=== PATIENT | female | born 1975 | race Caucasian/White ===

== ENCOUNTER → 2024-07-08 | Outpatient (CLI) | payer OTHER, SELFPAY ==
--- NOTE | 2024-07-08 14:00 | XR_ITS ---
Examination: CT abdomen with intravenous contrast. Coronal 2-D reconstructions. Sagittal 2-D reconstructions. Date and time of exam: July 08, 2024 1430 hours INDICATIONS: Onset pelvic and perineal pain beginning 3 months ago CTDI: vol (mGy): 8.25 DLP: (mGycm): 304 Technique: Axial images of the abdomen have been obtained, 3 mm slice thickness, 60 cc [id number] 2-D sagittal coronal reconstructions Low dose protocols were performed. One or more of the following dose reduction techniques were used; automated exposure control, adjustment of the mA and/or KV according to patient size, use of iterative reconstruction technique. Findings: Tiny liver cysts No gallstones Spleen not enlarged No pancreatic mass No renal or ureteral calculi, no hydronephrosis Aorta normal size Normal appendix Grade 1 spondylolisthesis L5 on S1 with advanced degenerative disc disease at this level IMPRESSION: No acute process in the abdomen
== END | disposition home or self-care (01) ==
PROVIDERS: PCP Nurse Practitioner Family; Referring Provider Nurse Practitioner Family; Visit Provider Nurse Practitioner Family
DX: R10.2 Pelvic and perineal pain (principal)
CPT/HCPCS: 74160; A4649; Q9967

== ENCOUNTER 2024-08-07 13:35 | Outpatient (AMB) | payer OTHER, SELFPAY ==
[2024-08-07 14:07] VITALS: BP 134/92; PULSE 92; RESP 18; TEMP 36.2; O2SAT 98
--- NOTE | 2024-08-07 14:07 | GYNCLNT_ITS ---
Vital Signs 08/07/24 14:07 Weight 80.995 kg Weight Measurement Method Standing Scale BP 134/92 H Blood Pressure Source Automatic Cuff Blood Pressure Location Left Upper Arm Position Sitting Respiration 18 Pulse 92 Pulse Source Monitor Temp 97.2 F Temp Source Oral Pulse Oximetry (%) 98 Oxygen Delivery Method Room Air Allergies/Home Meds Allergies & Medications Allergies No Known Allergies Allergy (Verified 08/13/24 13:29) Medication Reconciliation estradiol 0.01% (0.1 mg/gram) vaginal cream 1 g vaginal QDAY 30 days #42.5 grams 08/13/24 [Rx Confirmed 08/13/24] Intake Visit Data Collection New Patient or Established: New Patient not seen in past 3 years at [facility] (considered New) Reason for Visit:: HYSTERECTOMY CONERNS Seen by Clinical Staff ONLY (RN/MA): No Life Enrichment Director Required: No Do You Feel Safe at Home: Yes Authorities Contacted: N/A PCP or OBGYN visit in last 3 months: Yes Hx Now: Yes Are you currently on any form of Control: No Pain Present Currently: No Pain Scale Used: Durbin-Mayer/Numerical Pain scale:: 0 Smoking Status Smoking Status: Never smoker 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 History Monthly: No Age at menarche: 13 Menopausal: No Currently sexually active: Yes 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 1. Little interest or pleasure in doing things: not at all 2. Feeling down, depressed, or hopeless: not at all Total score: 0 PHQ-9 3. Trouble falling or staying asleep, or sleeping too much: Not at all 4. Feeling tired or having little energy: Not at all 5. Poor appetite or overeating: Not at all 6. Feeling bad about yourself - or that you are a failure or have let yourself or your family down: Not at all 7. Trouble concentrating on things, such as reading the newspaper or watching television: Not at all 8. Moving or speaking so slowly that other people could have noticed? - Or the opposite - being so fidgety or restless that you have been moving around a lot more than usual: not at all 9. Thoughts that you would be better off or of hurting yourself in some way: Not at all Total score: 0 If you checked off any problems, how difficult have these problems made it for you to do your work, take care of things at home, or get along with other people?: not difficult at all Source: Developed by Drs. Solis Figueredo, Sarah Peter, Mg Giron and colleagues, with an educational abraham from [employer]. Depression screen completed yes Social History Living Situation History Lives With: Family Housing: House Housing Other:: indep lives with family Tobacco History Smoking Status: Never smoker Second Hand Smoke Exposure: No Alcohol History Alcohol Intake: Never Domestic Abuse History Do You Feel Safe at Home: Yes History of Present Illness HPI Narrative Rebecca Lunsford is a 48-year-old female presenting for follow-up on pelvic pain status post hysterectomy. She has a history of multiple pelvic and abdominal surgeries, including a total abdominal hysterectomy with bilateral salpingo-oophorectomy performed on October 22, 2020, for endometriosis and chocolate cysts. The patient reports ongoing pelvic pain, which she describes as a pulling sensation in the anterior abdominal wall. This pain had initially improved after her surgery but has since recurred. She characterizes the pain as deep and cramping, similar to menstrual cramps, despite the absence of her uterus. The pain is located primarily in the midline of her lower abdomen. She also experiences pressure and sharp pain during intercourse. Rebecca notes that she started experiencing this pain again in February or January, with more consistent symptoms since March or April. She denies any changes in bowel habits, loose stools, or constipation. The patient reports feeling bloated at times. The pain is impacting her daily life, causing concern due to its similarity to her pre-surgical symptoms. The patient has undergone recent imaging studies, including a pelvic ultrasound, which did not reveal any abnormalities. She is scheduled for both abdominal and pelvic MRI scans to further investigate the source of her pain. Regarding other health concerns, Rebecca mentions having breast implants and undergoing MRI screenings for breast cancer surveillance instead of mammograms due to discomfort experienced with traditional mammography. ROS: General: Positive for pain. Gastrointestinal: Positive for bloating. Genitourinary: Positive for deep pelvic pain, pain during intercourse. Musculoskeletal: Positive for pulling sensation in anterior abdominal wall. Exam General General Appearance: alert, in no apparent distress and healthy appearing Head Head exam: atraumatic Neck Neck exam: Present normal inspection and trachea midline Chest Chest inspection: Present normal inspection and symmetric chest wall rise External exam: Present normal external exam; Absent tenderness Neuro Neurological exam: Present oriented X3 Psych Psychiatric exam: Present normal affect and normal mood Office Procedures OB Clinic LOC & Office Proc's Nursing/Assessment Patient Status: Initial/New Patient OB Clinic Nursing Assessment: Medication Reconciliation, Update PMH in EMR and Vital Signs OB Clinic Coordination of Care: Education Complex Pt/Fam, Consent,records obtained, informed consent, Lab and Imaging orders and Staff clarify orders New Patient Charge New Patient Point Assignment: [id number] New Patient Point Charge: PROJECT STRUCTURAL ENGINEER Level 3 ([id number]) Assessment & Plan Diagnosis / Problem List (1) S/P RG-BSO (total abdominal hysterectomy and bilateral salpingo- oophorectomy): Status: Acute (2) Pelvic and perineal pain: Status: Acute (3) Peritoneal adhesions (postprocedural) (postinfection): Status: Acute (4) Endometriosis of the uterus, unspecified: Status: Acute (5) Postmenopausal atrophic vaginitis: Status: Acute Plan Chronic Pelvic Pain: - Persistent pelvic pain described as pulling sensation in anterior abdominal wall and deep pain - Pain localized to midline, associated with feeling of bloating - Differential diagnosis: post-surgical adhesions, reactivation of endometriosis, or neuropathic pain - Physical examination: no palpable masses or hernias - Recent pelvic ultrasound reportedly clear Plan: - Await results of scheduled abdominal and pelvic MRI - Review MRI results at follow-up appointment next week - If MRI is clear, consider diagnostic laparoscopy for evaluation and possible lysis of adhesions - Discuss potential involvement of Dr. Hassan for management of bowel adhesions if present - If laparoscopy is unrevealing, consider nerve studies to evaluate for trapped nerve - Trial of topical estrogen cream for vaginal application - Follow up next week to review MRI results and determine next steps Menopausal Symptoms: - Status post total hysterectomy with bilateral salpingo-oophorectomy - Reports discomfort during intercourse, possibly related to vaginal atrophy Plan: - Initiate trial of topical estrogen cream for vaginal application - Educate patient on proper application of estrogen cream - Assess response to treatment at follow-up visit Breast Cancer Screening: - History of breast implants and discomfort with traditional mammography - Last mammogram performed approximately 8 years ago Plan: - Recommend annual breast ultrasound for routine screening - Consider breast MRI every 10 years for comprehensive evaluation - Educate patient on importance of regular breast cancer screening and appropriateness of ultrasound and MRI for patients with breast implants
== END 2024-08-07 14:36 | disposition home or self-care (01) ==
LOC: HODSOBC 13:35
PROVIDERS: PCP Nurse Practitioner Family; Referring Provider Nurse Practitioner Family; Supervising Provider Obstetrics & Gynecology; Visit Provider Obstetrics & Gynecology
DX: K66.0 Peritoneal adhesions (postprocedural) (postinfection) (principal); N95.2 Postmenopausal atrophic vaginitis; N80.00 Endometriosis of the uterus, unspecified; Z90.710 Acquired absence of both cervix and uterus; Z90.79 Acquired absence of other genital organ(s); Z90.722 Acquired absence of ovaries, bilateral; Z98.82 Breast implant status
CPT/HCPCS: 99203; G0463

== ENCOUNTER → 2024-08-10 | Outpatient (CLI) | payer OTHER, SELFPAY ==
--- NOTE | 2024-08-10 13:45 | XR_ITS ---
Examination: MRI abdomen with intravenous contrast. MRI abdomen without intravenous contrast. Date and time of exam: August 10, 2024 1333 hours INDICATIONS: Right-sided abdominal pain beginning 4 months ago Technique: Multiple axial, sagittal and coronal sections of the abdomen obtained. Transverse images, TR 6020, TE 107. T1 weighted transverse images, TR 582, TE 9.5. T2-weighted sagittal images, TR 4000, TE 105. T2-weighted sagittal images, TR 4000, TE 5. Coronal images, TR 4210, TE 107. Axial and coronal images are obtained post 19 cc intravenous injection, gadolinium. Findings: 13 mm anterior right liver cyst No intrahepatic biliary tract dilatation No gallstones noted The common hepatic or common bile duct stones Spleen is not enlarged cyst No hydronephrosis No ascites Aorta normal size Postcontrast images demonstrate no abnormal enhancement of the liver cyst or other abnormal enhancement in the abdomen IMPRESSION: 13 mm benign anterior right lobe liver cyst Negative for biliary tract dilatation No common duct or common bile duct stones Negative for ascites No abnormal enhancement on the postcontrast images
--- NOTE | 2024-08-10 14:45 | XR_ITS ---
Examination: MRI pelvis with intravenous contrast. MRI pelvis without intravenous contrast. Date and time of exam: August 10, 2024 1333 hours INDICATIONS: Onset of pelvic and perineal pain beginning 3 months ago Technique: Multiple axial, sagittal and coronal sections of the pelvis obtained. Transverse images, TR 6020, TE 107. T1 weighted transverse images, TR 582, TE 9.5. T2-weighted sagittal images, TR 4000, TE 105. T2-weighted sagittal images, TR 4000, TE 5. Coronal images, TR 4210, TE 107. Axial and coronal images are obtained post 19 cc intravenous injection, gadolinium. Findings: Uterus is 9 visualized No adnexal mass Urinary bladder is intact No presacral edema or mass Homogeneous signal lower vertebral bodies and sacral segments No common iliac external iliac or common femoral lymphadenopathy No abnormal enhancement in the pelvis IMPRESSION: Negative for pelvic mass
== END | disposition home or self-care (01) ==
LOC: SMRI 13:17
PROVIDERS: PCP Obstetrics & Gynecology; Referring Provider Obstetrics & Gynecology; Visit Provider Obstetrics & Gynecology
DX: K76.89 Other specified diseases of liver (principal)
CPT/HCPCS: 72197; 74183; A9579

== ENCOUNTER 2024-08-13 13:21 | Outpatient (AMB) | payer OTHER, SELFPAY ==
--- NOTE | 2024-08-13 13:28 | AMB.GYNCLNOT ---
Allergies/Home Meds Allergies & Medications Allergies No Known Allergies Allergy (Verified 08/13/24 13:29) Medication Reconciliation estradiol 0.01% (0.1 mg/gram) vaginal cream 1 g vaginal QDAY 30 days #42.5 grams 08/13/24 [Rx Confirmed 08/13/24] Intake Visit Data Collection New Patient or Established: Established Patient (seen at [facility] within 3 years) Reason for Visit:: results Consent obtained for Telemed Visit: Yes Seen by Clinical Staff ONLY (RN/MA): No Ride Operator Required: No Do You Feel Safe at Home: Yes Authorities Contacted: N/A PCP or OBGYN visit in last 3 months: Yes Hx Now: No Are you currently on any form of Control: No Pain Present Currently: No Pain Scale Used: Durbin-Mayer/Numerical Pain scale:: 0 Smoking Status Smoking Status: Never smoker 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 1. Little interest or pleasure in doing things: not at all 2. Feeling down, depressed, or hopeless: not at all Total score: 0 PHQ-9 3. Trouble falling or staying asleep, or sleeping too much: Not at all 4. Feeling tired or having little energy: Not at all 5. Poor appetite or overeating: Not at all 6. Feeling bad about yourself - or that you are a failure or have let yourself or your family down: Not at all 7. Trouble concentrating on things, such as reading the newspaper or watching television: Not at all 8. Moving or speaking so slowly that other people could have noticed? - Or the opposite - being so fidgety or restless that you have been moving around a lot more than usual: not at all 9. Thoughts that you would be better off or of hurting yourself in some way: Not at all Total score: 0 If you checked off any problems, how difficult have these problems made it for you to do your work, take care of things at home, or get along with other people?: not difficult at all Source: Developed by Drs. Solis Figueredo, Sarah Peter, Mg Giron and colleagues, with an educational abraham from [employer]. Depression screen completed yes Social History Living Situation History Lives With: Family Housing: House Housing Other:: indep lives with family Tobacco History Smoking Status: Never smoker Second Hand Smoke Exposure: No Alcohol History Alcohol Intake: Never Domestic Abuse History Do You Feel Safe at Home: Yes History of Present Illness HPI Narrative Patient presents with ongoing pain, which has been previously evaluated. She recently underwent an MRI to investigate the source of her pain. The patient reports persistent pain, though the specific location and characteristics are not detailed. She has been experiencing this pain for an unspecified duration, and it appears to be impacting her quality of life enough to consider further diagnostic procedures. The possibility of a diagnostic laparoscopy to further investigate the cause of the pain is discussed, suggesting that previous treatments or evaluations have not fully resolved the issue. The pain could potentially be due to surgical scar tissue or muscle pulling, indicating a possible history of previous surgery. The patient agrees to try pain medication as a first-line treatment before considering the diagnostic laparoscopy. Medications include pain medication. Review of Systems shows positive for musculoskeletal pain. Results Objective Imaging: Diagnostic Test Results and Labs: - MRI (08/10/2024): Completely normal. Uterus not seen, no mass, bladder normal, no edema, no inflammation. Office Procedures OB Clinic LOC & Office Proc's Nursing/Assessment Patient Status: Established Patient OB Clinic Nursing Assessment: Medication Reconciliation and Update PMH in EMR OB Clinic Coordination of Care: Education Complex Pt/Fam, Consent,records obtained, informed consent and Staff clarify orders Established Patient Charge Established Patient Point Assignment: 50 Telehealth If patient is seen using Teleconference methods, complete New/Est section, but DO NOT jayro points only jayro the correct Telemed visit type Telemed Phone/Video with patient at home & ,[place],COMMUNITY REPRESENTATIVE: Yes Assessment & Plan Diagnosis / Problem List (1) Postmenopausal atrophic vaginitis: Status: Acute (2) Endometriosis of the uterus, unspecified: Status: Acute (3) Peritoneal adhesions (postprocedural) (postinfection): Status: Acute Plan Persistent pain of unknown etiology Plan: - Prescribe pain medication (specifics to be sent to pharmacy). - Recommend continuation of exercise regimen with pain medication as needed. - Patient to trial conservative management with pain medication and exercise. - Consider diagnostic laparoscopy if pain persists despite conservative management. - Follow up as needed if pain persists or worsens.
== END 2024-08-13 13:51 | disposition home or self-care (01) ==
LOC: HODSOBC 13:21
PROVIDERS: PCP Obstetrics & Gynecology; Referring Provider Obstetrics & Gynecology; Supervising Provider Obstetrics & Gynecology; Visit Provider Obstetrics & Gynecology
DX: N95.2 Postmenopausal atrophic vaginitis (principal); N80.00 Endometriosis of the uterus, unspecified; K66.0 Peritoneal adhesions (postprocedural) (postinfection)
CPT/HCPCS: 99212; G0463